=== PATIENT | female | born 1990 | race Two or more races ===

== ENCOUNTER 2016-08-26 08:15 | Emergency (ER) | payer MEDICAID ==
[~2016-08-26] VITALS: Ht 167.6 cm; Wt 72.6 kg
[2016-08-26] MEDS ORDERED: PRENATA CHEWAB1 EACH PO (08:24)
--- NOTE | 2016-08-26 09:09 | Emergency Room Report ---
History of Present Illness General Chief Complaint: Abdominal Pain Source: Patient Present Illness HPI 26 YO F approx 9 weeks , presents with 3 weeks intermittent "dull" abd pain. Associated with mild nausea. Denies vomiting, diarrhea, fever/chills, urinary complaints. Saw OB [employer] 3 weeks ago after + home preg test. Had sono done then which was "normal." Is on pre- vitamins now. first . No history of miscarriage, ectopic. Denies DM, HTN, other medical problems. Didnt mention abd pain 3 weeks ago to [employer] "because I was in shock I was . " Doesnt have next OB followup schduled yet because just approved for Medical. Allergies: Coded Allergies: No Known Allergies (Verified Allergy, Mild, 08/28/07) Patient History Past Medical History: none Past Surgical History: none Pertinent Family History: none Last Menstrual Period: 05/21/2016 Now: No : 1 Para: 0 Immunizations: UTD Reviewed Nursing Documentation: PMH: Agreed, PSxH: Agreed Nursing Documentation-PMH Past Medical History: No Stated History Review of Systems All Other Systems: negative except mentioned in HPI Physical Exam Vital Signs Date Time Temp Pulse Resp B/P Pulse Ox O2 Delivery O2 Flow Rate FiO2 08/26/16 08:18 98.4 95 16 105/71 98 Room Air Sp02 EP Interpretation: reviewed, normal General Appearance: normal inspection, well appearing, no apparent distress, alert Head: atraumatic ENT: normal ENT inspection, hearing grossly normal, normal voice Neck: normal inspection, full range of motion, supple, no bony tend Respiratory: normal inspection, lungs clear, normal breath sounds, no respiratory distress, no retraction, no wheezing Cardiovascular #1: regular rate, rhythm, no edema Gastrointestinal: normal inspection, normal bowel sounds, non tender, soft, no guarding, no hernia Genitourinary: no CVA tenderness, other - bedside TA ultraouns: +IUP, +FHR with + movement. No free fluid in pelvis or RUQ. Musculoskeletal: normal inspection, back normal, normal range of motion, Marimar' s Sign negative Neurologic: normal inspection, alert, responsive, speech normal Psychiatric: normal inspection, judgement/insight normal, mood/affect normal Skin: normal inspection, normal color, no rash Medical Decision Making Diagnostic Impression: Primary Impression: Pelvic pain affecting in first trimester, antepartum ER Course 26 YO F appropx 9 weeks with pelvic pain for 3 weeks and nausea. VSS. Afebrile. Beside ED sono TA confirms IUP Urine preg + UA: No LE, no nitrites. 0-2 WBCs. No bacteria or UTI Tylenol and zofran PO given in ED. Patient tolerating PO No vomiting. Likely round ligament pain of Rx Tylenol as needed Rx vitamin B6 with doxylamine for nausea OB followup I offered official OB ultrasound in ED - patient and boyfriend do not want to wait, prefer try OTC Tylenol, meds and see if improves Patient understands to return for worsening pain, pain with bleeding, other concerning symptoms Last Vital Signs Date Time Temp Pulse Resp B/P Pulse Ox O2 Delivery O2 Flow Rate FiO2 08/26/16 08:18 98.4 95 16 105/71 98 Room Air Status: improved Disposition: HOME, SELF-CARE Scripts Acetaminophen (Acetaminophen) 325 Mg Capsule 650 MG PO TID for For Pain for 14 Days, #30 CAP Prov: RAMSEY NEW M.D. 08/26/16 Doxylamine Succinate (Unisom) 25 Mg Tablet 25 MG PO TID for nausea for 30 Days, #30 TAB Prov: RAMSEY NEW M.D. 08/26/16 Pyridoxine Hcl (VITAMIN B-6) 25 Mg Tablet 25 MG PO TID Y for nausea for 30 Days, #30 TAB Prov: RAMSEY NEW M.D. 08/26/16 Referrals: NOT CHOSEN LUIS F/,REFERRING (PCP) RAMSEY NEW M.D. Aug 26, 2016 09:09
[2016-08-26] MEDS ORDERED: VITAMIN B-625 MG PO (09:15)
[2016-08-26] MEDS ORDERED: ACETAMINOPHEN325 M3 PO (09:15)
[2016-08-26] MEDS ORDERED: UNISOM25 MG PO (09:15)
[2016-08-26 09:16] LABS: APPEARANCE,URINE SLIGHTLY CLOUDY; KETONES,URINE NEGATIVE (NEGATIVE); LEUKOCYTE ESTERASE ,URINE NEGATIVE (NEGATIVE); NITRITE,URINE NEGATIVE (NEGATIVE); PH,URINE 5 (4.5-8.0); PROTEIN,URINE NEGATIVE (NEGATIVE); UROBILINOGEN,URINE NORMAL MG/DL (0.0-1.0)
[2016-08-26 09:17] LABS: BACTERIA,URINE FEW /HPF; MUCUS,URINE FEW /LPF (NONE/OCC); RBC,URINE 0-2 /HPF (0 - 2); SQUAMOUS EPITHELIAL CELL,UR FEW /LPF (NONE/OCC); WBC,URINE 0-2 /HPF (0 - 2)
[2016-08-26 09:29] VITALS: BP 103/68
== END 2016-08-26 09:31 | disposition home or self-care (01) ==
LOC: EMR 08:30
DX: O26.891 Other specified pregnancy related conditions, first trimester (principal); Z3A.09 9 weeks gestation of pregnancy; R10.2 Pelvic and perineal pain
CPT/HCPCS: 81003; 81025; 99284

== ENCOUNTER 2018-04-26 19:57 | Emergency (ER) | payer MEDICAID ==
[~2018-04-26] VITALS: Ht 167.6 cm; Wt 79.4 kg
[~2018-04-26 19:57] MED LIST: ACETAMINOPHEN325 M3 PO; PRENATA CHEWAB1 EACH PO; UNISOM25 MG PO; VITAMIN B-625 MG PO
[2018-04-26 20:12] VITALS: BP 114/66
--- NOTE | 2018-04-26 20:20 | Emergency Room Report ---
History of Present Illness General Chief Complaint: Abdominal Pain Source: Patient Present Illness HPI The patient's symptoms started this afternoon. She was at work. 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 She started having a headache. She took ibuprofen without eating. A while later she started having nausea, vomiting aches chills diarrhea and crampy abdominal pain. Denies any upper respiratory symptomatology. Her last period ended day and was normal for her. She doesn't feel she is . She is a 2-year-old at home. She's not sure if she ate something unusual today and was at [facility]. No blood in the stool. No blood in the vomit. Pain is 6- 7 out of 10 at this time, generalized. No dysuria. No rashes. She has migraines and the headache felt somewhat like this. Post appendectomy. 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 Last Menstrual Period: 1 week ago Now: No Reviewed Nursing Documentation: PMH: Agreed; PSxH: Agreed Nursing Documentation-PMH Past Medical History: No Stated History Review of Systems All Other Systems: negative except mentioned in HPI Physical Exam Vital Signs Date Time Temp Pulse Resp B/P (MAP) Pulse Ox O2 Delivery O2 Flow Rate FiO2 04/26/18 20:01 98.5 106 24 114/66 96 Room Air 98.4 Sp02 EP Interpretation: reviewed, normal General Appearance: well appearing, no apparent distress, GCS 15 Head: normocephalic, atraumatic Eyes: bilateral eye normal inspection, bilateral eye PERRL ENT: moist mucus membranes Neck: supple Respiratory: lungs clear, normal breath sounds Cardiovascular #1: regular rate, rhythm Cardiovascular #2: 2+ radial (R) Gastrointestinal: normal inspection, normal bowel sounds, soft, no mass, non- distended, no guarding, no rebound, tenderness - generalized Genitourinary: no CVA tenderness Musculoskeletal: back normal, gait/station normal, normal range of motion Neurologic: alert, oriented x3, grossly normal Psychiatric: mood/affect normal Skin: normal inspection, warm/dry, other - tattoos Medical Decision Making Diagnostic Impression: Primary Impression: Viral gastroenteritis ER Course Patient presents with vomiting nausea diarrhea abdominal pain. I differential includes viral gastroenteritis, food poisoning, amongst others. Her exam is fairly benign at this time. She'll be treated with IV hydration, Zofran , Toradol and small dose of morphine. Evaluation will be with labs including urinalysis and test. Imaging is not indicated at this time. White count slightly elevated. Urine post menstruation and no pyuria (doubt stone). CMP and lipase normal. She's complaining about pounding discomfort in her mid abdomen rated 3 out of 10 at this time. She declines further pain medication. She feels as stable for outpatient observation at this time. Discussed treatment plan with patient and expected course. Patient stable for outpatient observation and treatment. Laboratory Tests Test 04/26/18 20:22 White Blood Count 11.8 K/UL (4.8-10.8) H Red Blood Count 4.69 M/UL (4.20-5.40) Hemoglobin 15.1 G/DL (12.0-16.0) Hematocrit 43.7 % (37.0-47.0) Mean Corpuscular Volume 93 FL (80-99) Mean Corpuscular Hemoglobin 32.1 PG (27.0-31.0) H Mean Corpuscular Hemoglobin Concent 34.5 G/DL (32.0-36.0) Red Cell Distribution Width 10.7 % (11.6-14.8) L Platelet Count 339 K/UL (150-450) Mean Platelet Volume 6.9 FL (6.5-10.1) Neutrophils (%) (Auto) % (45.0-75.0) Lymphocytes (%) (Auto) % (20.0-45.0) Monocytes (%) (Auto) % (1.0-10.0) Eosinophils (%) (Auto) % (0.0-3.0) Basophils (%) (Auto) % (0.0-2.0) Differential Total Cells Counted 100 Neutrophils % (Manual) 90 % (45-75) H Lymphocytes % (Manual) 5 % (20-45) L Monocytes % (Manual) 2 % (1-10) Eosinophils % (Manual) 1 % (0-3) Basophils % (Manual) 0 % (0-2) Band Neutrophils 2 % (0-8) Platelet Estimate Adequate Platelet Morphology Normal Red Blood Cell Morphology Normal Urine Color Lisa Urine Appearance Slightly cloudy Urine pH 5 (4.5-8.0) Urine Specific [place] 1.020 (1.005-1.035) Urine Protein 2+ (NEGATIVE) H Urine Glucose (UA) Negative (NEGATIVE) Urine Ketones 4+ (NEGATIVE) H Urine Blood 5+ (NEGATIVE) H Urine Nitrite Negative (NEGATIVE) Urine Bilirubin Negative (NEGATIVE) Urine Ictotest Negative (NEGATIVE) Urine Urobilinogen Normal MG/DL (0.0-1.0) Urine Leukocyte Esterase 1+ (NEGATIVE) H Urine RBC 15-20 /HPF (0 - 2) H Urine WBC 2-4 /HPF (0 - 2) Urine Squamous Epithelial Cells Many /LPF (NONE/OCC) H Urine Bacteria Moderate /HPF (NONE) H Urine HCG, Qualitative Negative (NEGATIVE) Sodium Level 140 MMOL/L (136-145) Potassium Level 3.7 MMOL/L (3.5-5.1) Chloride Level 105 MMOL/L (98-107) Carbon Dioxide Level 24 MMOL/L (21-32) Anion Gap 11 mmol/L (5-15) Blood Urea Nitrogen 24 mg/dL (7-18) H Creatinine 0.8 MG/DL (0.55-1.30) Estimate Glomerular Filtration Rate > 60 mL/min (>60) Glucose Level 101 MG/DL (74-106) Calcium Level 8.9 MG/DL (8.5-10.1) Total Bilirubin 0.4 MG/DL (0.2-1.0) Aspartate Amino Transferase (AST) 12 U/L (15-37) L Alanine Aminotransferase (ALT) 19 U/L (12-78) Alkaline Phosphatase 92 U/L (46-116) Total Protein 8.2 G/DL (6.4-8.2) Albumin 4.1 G/DL (3.4-5.0) Globulin 4.1 g/dL Albumin/Globulin Ratio 1.0 (1.0-2.7) Lipase 98 U/L (73-393) Last Vital Signs Date Time Temp Pulse Resp B/P (MAP) Pulse Ox O2 Delivery O2 Flow Rate FiO2 04/26/18 22:08 97.8 80 14 115/75 99 Room Air Status: improved Disposition: HOME, SELF-CARE Condition: Improved Scripts Ibuprofen* (MOTRIN*) 600 Mg Tablet 600 MG ORAL Q8H PRN for For Pain, #16 TAB 0 Refills Prov: Cj Barba M.D. 04/26/18 Tramadol Hcl* (ULTRAM*) 50 Mg Tablet 50 MG ORAL Q6H PRN for For Pain, #10 TAB 0 Refills Prov: Cj Barba M.D. 04/26/18 Ondansetron Odt* (ZOFRAN ODT*) 4 Mg Tab.rapdis 4 MG BC EVERY 8 HOURS, #6 TAB 1 Refill Prov: Cj Barba M.D. 04/26/18 Cj Barba M.D. Apr 26, 2018 20:20
[2018-04-26] MEDS ORDERED: Morphine Sulfate 2mg/ml Inj IVP ONE (20:30)
[2018-04-26] MEDS ORDERED: Ketorolac 30mg Inj IV ONE (20:30)
[2018-04-26 20:33] LABS: APPEARANCE,URINE SLIGHTLY CLOUDY; BILIRUBIN, URINE NEGATIVE (NEGATIVE); COLOR,URINE AMBER; GLUCOSE, URINE (UA) NEGATIVE (NEGATIVE); HEMATOCRIT 43.7 % (37.0-47.0); HEMOGLOBIN 15.1 G/DL (12.0-16.0); KETONES,URINE 4+ (NEGATIVE); LEUKOCYTE ESTERASE ,URINE 1+ (NEGATIVE); MEAN CORPUSCULAR VOLUME 93 FL (80-99); NITRITE,URINE NEGATIVE (NEGATIVE); PH,URINE 5 (4.5-8.0); PLATELET COUNT 339 K/UL (150-450); PROTEIN,URINE 2+ (NEGATIVE); RED BLOOD COUNT 4.69 M/UL (4.20-5.40); RED CELL DISTRIBUTION WIDTH 10.7 % (11.6-14.8); UROBILINOGEN,URINE NORMAL MG/DL (0.0-1.0); WHITE BLOOD COUNT 11.8 K/UL (4.8-10.8)
[2018-04-26 20:44] LABS: ANION GAP 11 mmol/L (5-15); BLOOD UREA NITROGEN 24 mg/dL (7-18); CALCIUM 8.9 MG/DL (8.5-10.1); CARBON DIOXIDE 24 MMOL/L (21-32); CHLORIDE 105 MMOL/L (98-107); CREATININE 0.8 MG/DL (0.55-1.30); POTASSIUM 3.7 MMOL/L (3.5-5.1); SODIUM 140 MMOL/L (136-145)
[2018-04-26 20:49] LABS: ALANINE AMINOTRANSFERASE 19 U/L (12-78); ALBUMIN 4.1 G/DL (3.4-5.0); ALKALINE PHOSPHATASE 92 U/L (46-116); ASPARTATE AMINO TRANSFERASE 12 U/L (15-37); BILIRUBIN,TOTAL 0.4 MG/DL (0.2-1.0)
[2018-04-26] MEDS ORDERED: IBUPROFEN600 MG ORAL (21:37)
[2018-04-26] MEDS ORDERED: ONDANSETRON ODT4 MG BC (21:37)
[2018-04-26] MEDS ORDERED: TRAMADOL HCL50 MG ORAL (21:37)
[2018-04-26 22:08] VITALS: BP 115/75
== END 2018-04-26 21:45 | disposition home or self-care (01) ==
LOC: EMR 20:20
DX: A08.4 Viral intestinal infection, unspecified (principal)
CPT/HCPCS: 36415; 80053; 81003; 81025; 83690; 85007; 85025; 87086; 96361; 96374; 96375; 99284; J1885; J2270; J2405